=== PATIENT | male | born 1970 | race Caucasian/White ===

== ENCOUNTER 2019-01-07 05:45 | Emergency (ER) | payer OTHER ==
[2019-01-07 05:51] VITALS: BP 152/92
[2019-01-07] MEDS ORDERED: IBUPROFEN 600 MG TAB PO ONE (06:10)
[2019-01-07] MEDS ORDERED: ACETAMINOPHEN 325 MG TAB PO ONE (06:10)
--- NOTE | 2019-01-07 06:39 | RADIOLOGY IMAGING REPORT ---
FACILITY: [facility] [place] PATIENT NAME: Ok Zhou : 1970 MR: [id number] V: [id number] EXAM DATE: ORDERING PHYSICIAN: JAZZMINE PARK TECHNOLOGIST: Location: [facility] [place] Patient: Ok Zhou : 1970 Visit/Account:[id number] Date of Sevice: 01/07/2019 KNEE 3 VIEW LEFT Indication: Left knee pain. Tenderness to palpation medially. Comparison: None available. Findings: 3 views of the left knee. No evidence of acute fracture, dislocation, or radiopaque foreign body. Enthesophyte at the insertion of the quadriceps tendon. Otherwise normal mineralization, joint spaces , and alignment. Impression: No acute osseous abnormality of the left knee. Report Dictated By: Eusebio Weber MD at 01/07/2019 6:32 AM Report E-Signed By: Eusebio Weber MD at 01/07/2019 6:34 AM WSN:[id number]
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
== END 2019-01-07 07:05 | disposition home or self-care (01) ==
LOC: ER 06:07
DX: S83.412A Sprain of medial collateral ligament of left knee, initial encounter (principal); S80.02XA Contusion of left knee, initial encounter; V18.4XXA Pedal cycle driver injured in noncollision transport accident in traffic accident, initial encounter
CPT/HCPCS: 73562; 99283; L1830